=== PATIENT | male | born 1965 | race Caucasian/White ===

== ENCOUNTER 2017-07-30 17:06 | Emergency (ER) | payer OTHER ==
--- NOTE | 2017-07-30 18:54 | EDPHYS ---
Physician Documentation [facility] Name: Andrew Silva Age: 51 yrs Sex: Male : 1965 Arrival Date: 07/30/2017 Time: 17:08 Bed 5 Private MD: ED Physician Sujit Booker HPI: 07/30 19:23 This 51 yrs old Male presents to ER via Ambulatory with complaints of Chest snw Congestion. 19:23 Onset: The symptoms/episode began/occurred suddenly, 2 week(s) ago, and became worse snw and became persistent. Associated signs and symptoms: Pertinent positives: cough. Modifying factors: The patient symptoms are alleviated by inhaler treatment, taking Bactrim he had at home. The patient has experienced similar episodes in the past. The patient has been recently seen by a physician: with similar presenting [facility]. Historical: - Allergies: 17:21 Codeine; aj - Home Meds: 17:21 bupropion HCl 75 mg Oral tab 1 tab daily. for Major Depressive Disorder [Active]; aj diclofenac sodium 50 mg Oral TbEC 1 tab 2 times per day [Active]; gabapentin 300 mg Oral cap 1 cap four times a day for pain or anxiety. [Active]; hydrochlorothiazide 25 mg Oral tab 1 tab once daily [Active]; lisinopril 20 mg Oral tab 1 tab once daily [Active]; trazodone 50 mg Oral tab 1 tab bedtime. [Active]; - PMHx: 17:21 Depression; Hypertension; aj - PSHx: 17:21 None; aj - Immunization history:: Adult Immunizations up to date. - Social history:: Smoking status: Patient uses tobacco products, chewing tobacco. ROS: 19:21 Constitutional: Negative for fever, chills, and weight loss, Eyes: Negative for injury, snw pain, redness, and discharge, ENT: Negative for injury, pain, and discharge, Neck: Negative for injury, pain, and swelling, Cardiovascular: Negative for chest pain, palpitations, and edema, Back: Negative for injury and pain, : Negative for injury, bleeding, discharge, and swelling, MS/Extremity: Negative for injury and deformity, Skin: Negative for injury, rash, and discoloration, Neuro: Negative for headache, weakness, numbness, tingling, and seizure. 19:21 Abdomen/GI: Negative for abdominal pain, nausea, vomiting, diarrhea, and constipation. 19:21 Respiratory: Positive for cough, wheezing, expiratory. Exam: 19:21 Constitutional: This is a well developed, well nourished patient who is awake, alert, snw and in no acute distress. Head/Face: Normocephalic, atraumatic. Eyes: Pupils equal round and reactive to light, extra-ocular motions intact. Lids and lashes normal. Conjunctiva and sclera are non-icteric and not injected. Cornea within normal limits. Periorbital areas with no swelling, redness, or edema. ENT: Nares patent. No nasal discharge, no septal abnormalities noted. Tympanic membranes are normal and external auditory canals are clear. Oropharynx with no redness, swelling, or masses, exudates, or evidence of obstruction, uvula midline. Mucous membranes moist. Neck: Trachea midline, no thyromegaly or masses palpated, and no cervical lymphadenopathy. Supple, full range of motion without nuchal rigidity, or vertebral point tenderness. No Meningismus. Chest/axilla: Normal chest wall appearance and motion. Nontender with no deformity. No lesions are appreciated. Cardiovascular: Regular rate and rhythm with a normal S1 and S2. No gallops, murmurs, or rubs. Normal PMI, no JVD. No pulse deficits. Abdomen/GI: Soft, non-tender, with normal bowel sounds. No distension or tympany. No guarding or rebound. No evidence of tenderness throughout. Back: No spinal tenderness. No costovertebral tenderness. Full range of motion. Skin: Warm, dry with normal turgor. Normal color with no rashes, no lesions, and no evidence of cellulitis. MS/ Extremity: Pulses equal, no cyanosis. Neurovascular intact. Full, normal range of motion. Neuro: Awake and alert, GCS 15, oriented to person, place, time, and situation. Cranial nerves II-XII grossly intact. Motor strength 5/5 in all extremities. Sensory grossly intact. Cerebellar exam normal. Normal gait. 19:21 Respiratory: the patient does not display signs of respiratory distress, Respirations: normal, Breath sounds: bronchial sounds, wheezing: is not appreciated, is heard diffusely, cough. Vital Signs: 17:21 BP 169 / 114; Pulse 98; Resp 20; Temp 99.0; Pulse Ox 99% on R/A; Weight 107.5 kg; aj Height 5 ft. 10 in. (177.80 cm); Pain 0/10; 19:23 BP 156 / 108; Pulse 91; Resp 20; Pulse Ox 99% on R/A; tl2 17:21 Body Mass Index 34.01 (107.50 kg, 177.80 cm) aj MDM: 18:14 Patient medically screened. snw 19:23 Data reviewed: vital signs, nurses notes. Data interpreted: Pulse oximetry: on room air snw is 99 %. Interpretation: normal. Counseling: I had a detailed discussion with the patient and/or guardian regarding: the historical points, exam findings, and any diagnostic results supporting the discharge/admit diagnosis, the presence of at least one elevated blood pressure reading (>120/80) during this emergency department visit, the need for outpatient follow up, to return to the emergency department if symptoms worsen or persist or if there are any questions or concerns that arise at home. Special discussion: I have referred the patient to see his PCP for further evaluation of high blood pressure. Based on the history and exam findings, there is no indication for further emergent testing or inpatient evaluation. I discussed with the patient/guardian the need to see the primary care provider for further evaluation of the symptoms. Administered Medications: 19:22 Drug: Decadron 8 mg Route: PO; tl2 19:25 Follow up: Response: No adverse reaction; Medication administered at discharge. tl2 19:23 Not Given (Patient Refused): cloNIDine 0.1 mg PO once tl2 19:23 Drug: Augmentin 875 mg Route: PO; tl2 19:25 Follow up: Response: No adverse reaction; Medication administered at discharge. tl2 Disposition: 07/31 15:35 Co-signature as Attending Physician, Sujit Booker MD I agree with the assessment and wa plan of care. Disposition: 07/30/17 19:02 Discharged to Home. Impression: Cough variant asthma, Bronchitis, not specified as acute or chronic. - Condition is Stable. - Discharge Instructions: Acute Bronchitis, Fever, Adult, Hypertension, How to Use an Inhaler, Cool Mist Vaporizers, Cough, Adult. - Prescriptions for Augmentin 875- 125 mg Oral Tablet - take 1 tablet by ORAL route every 12 hours for 10 days; 20 tablet. Prednisone 20 mg Oral Tablet - take 2 tablet by ORAL route once daily for 5 days; 10 tablet. - Medication Reconciliation Form, Thank You Letter, Antibiotic Education, Prescription Opioid Use form. - Follow up: Private Physician; When: 1 - 2 days; Reason: Recheck today's complaints, Continuance of care, Re-evaluation by your physician. Follow up: Emergency Department; When: As needed; Reason: Worsening of condition. - Notes: Please stop Bactrim Signatures: Jael Natarajan RN RN Keiko Huber, VIDEO CONFERENCE SPECIALIST-C VIDEO CONFERENCE SPECIALIST-Csnw Ene Stanford RN RN tl2 Sujit Booker MD MD wa
--- NOTE | 2017-07-30 18:54 | ER ---
Nurse's Notes [facility] Name: Andrew Silva Age: 51 yrs Sex: Male : 1965 Arrival Date: 07/30/2017 Time: 17:08 Bed 5 Private MD: Diagnosis: Cough variant asthma;Bronchitis, not specified as acute or chronic Presentation: 07/30 17:19 Presenting complaint: Patient states: Cough with nasal congestion for 10 days. Reports aj painful productive cough. Transition of care: patient was not received from another setting of care. Onset of symptoms was July 20, 2017. Care prior to arrival: None. 17:19 Method Of Arrival: Ambulatory 17:19 Acuity: MANN 3 aj Triage Assessment: 17:21 General: Appears in no apparent distress. comfortable, Behavior is calm, cooperative, aj appropriate for age. Pain: Denies pain. EENT: Reports nasal congestion nasal discharge. Neuro: Level of Consciousness is awake, alert, obeys commands, Oriented to person, place, time, situation. Respiratory: Reports cough that is pain with cough Airway is patent Respiratory effort is even, unlabored, Respiratory pattern is regular, symmetrical. Derm: Skin is intact, is healthy with good turgor, Skin is pink, warm \T\ dry. normal. Historical: - Allergies: 17:21 Codeine; aj - Home Meds: 17:21 bupropion HCl 75 mg Oral tab 1 tab daily. for Major Depressive Disorder [Active]; aj diclofenac sodium 50 mg Oral TbEC 1 tab 2 times per day [Active]; gabapentin 300 mg Oral cap 1 cap four times a day for pain or anxiety. [Active]; hydrochlorothiazide 25 mg Oral tab 1 tab once daily [Active]; lisinopril 20 mg Oral tab 1 tab once daily [Active]; trazodone 50 mg Oral tab 1 tab bedtime. [Active]; - PMHx: 17:21 Depression; Hypertension; aj - PSHx: 17:21 None; aj - Immunization history:: Adult Immunizations up to date. - Social history:: Smoking status: Patient uses tobacco products, chewing tobacco. Screenin:10 Abuse screen: Denies threats or abuse. Denies injuries from another. Nutritional sg screening: No deficits noted. Tuberculosis screening: No symptoms or risk factors identified. Never had TB. Fall Risk None identified. Assessment: 18:10 General: Appears in no apparent distress. comfortable, well groomed, well developed, sg well nourished, Behavior is calm, cooperative, appropriate for age. Pain: Denies pain. Neuro: No deficits noted. Cardiovascular: Heart tones S1 S2 present Capillary refill is brisk in bilateral fingers Patient's skin is warm and dry. Chest pain is denied. Respiratory: Reports cough that is non-productive, pain with cough Airway is patent Respiratory effort is even, unlabored, Respiratory pattern is regular, symmetrical, Breath sounds are coarse. GI: No signs and/or symptoms were reported involving the gastrointestinal system. : No signs and/or symptoms were reported regarding the genitourinary system. EENT: No signs and/or symptoms were reported regarding the EENT system. Derm: No signs and/or symptoms reported regarding the dermatologic system. Skin is pink, warm \T\ dry. Musculoskeletal: No deficits noted. 19:23 Reassessment: Patient appears in no apparent distress at this time. Patient and/or tl2 family updated on plan of care and expected duration. Pain level reassessed. Patient is alert, oriented x 3, equal unlabored respirations, skin warm/dry/pink. Pt verbalized understanding of discharge instructions, need for follow up and prescription usage. Pt refused clonidine and stated his BP is high because he is upset. Verbalized understanding of risk of refusing medication. Vital Signs: 17:21 BP 169 / 114; Pulse 98; Resp 20; Temp 99.0; Pulse Ox 99% on R/A; Weight 107.5 kg; aj Height 5 ft. 10 in. (177.80 cm); Pain 0/10; 19:23 BP 156 / 108; Pulse 91; Resp 20; Pulse Ox 99% on R/A; tl2 17:21 Body Mass Index 34.01 (107.50 kg, 177.80 cm) aj ED Course: 17:08 Patient arrived in ED. as 17:20 Triage completed. aj 17:21 Arm band placed on left wrist. Patient placed in waiting room, Patient notified of wait aj time. 17:35 Brandyn Paz, RADHA is Primary Nurse. sg 17:37 Keiko Macias FNP-C is PHCP. snw 17:37 Sujit Booker MD is Attending Physician. snw 18:10 No provider procedures requiring assistance completed. Patient maintains SpO2 sg saturation greater than 95% on room air. 19:23 Patient has correct armband on for positive identification. tl2 19:23 Patient did not have IV access during this emergency room visit. tl2 Administered Medications: 19:22 Drug: Decadron 8 mg Route: PO; tl2 19:25 Follow up: Response: No adverse reaction; Medication administered at discharge. tl2 19:23 Not Given (Patient Refused): cloNIDine 0.1 mg PO once tl2 19:23 Drug: Augmentin 875 mg Route: PO; tl2 19:25 Follow up: Response: No adverse reaction; Medication administered at discharge. tl2 Outcome: 19:02 Discharge ordered by MD. snw 19:23 Discharged to home ambulatory, with family. tl2 19:23 Condition: stable 19:23 Discharge instructions given to patient, Instructed on discharge instructions, follow up and referral plans. medication usage, Demonstrated understanding of instructions, follow-up care, medications, Prescriptions given X 2. 19:26 Patient left the ED. tl2 Signatures: Brandyn Paz RN RN sg Myers, Amanda, RN RN aj Therrien, Shelly, CATEGORY ANALYST-C CATEGORY ANALYST-Csnw Justina Andres Taylor, RN RN tl2 Corrections: (The following items were deleted from the chart) 19:10 18:10 Respiratory: Airway is patent Respiratory effort is even, unlabored, Respiratory sg pattern is regular, symmetrical, Breath sounds are clear sg 19:25 19:23 Reassessment: Patient appears in no apparent distress at this time. Patient tl2 and/or family updated on plan of care and expected duration. Pain level reassessed. Patient is alert, oriented x 3, equal unlabored respirations, skin warm/dry/pink. Pt verbalized understanding of discharge instructions, need for follow up and prescription usage tl2
[2017-07-30] MEDS ORDERED: DEXAMETHASONE 4 MG TAB ONE (19:12)
[2017-07-30] MEDS ORDERED: cloNIDine HCl 0.1 MG TAB ONE (19:12)
[2017-07-30] MEDS ORDERED: AMOX/K CLAV 875 MG TAB ONE (19:12)
[2017-07-30 19:32] VITALS: TEMP 99; O2SAT 99
[2017-07-30 19:33] VITALS: BP 156/108
== END 2017-07-30 19:26 | disposition home or self-care (01) ==
LOC: ER 17:06
DX: J45.991 Cough variant asthma (principal); I10 Essential (primary) hypertension; F32.9 Major depressive disorder, single episode, unspecified; Z72.0 Tobacco use; Z88.5 Allergy status to narcotic agent
CPT/HCPCS: 99284

== ENCOUNTER 2019-04-05 21:12 | Emergency (ER) | payer OTHER ==
[2019-04-05] MEDS ORDERED: KETOROLAC 30 MG/ML INJ ONE (22:07)
--- NOTE | 2019-04-05 22:25 | EDPHYS ---
Physician Documentation [facility] Name: Andrew Silva Age: 53 yrs Sex: Male : 1965 Arrival Date: 04/05/2019 Time: 21:17 Bed 16 Private MD: ED Physician Timothy Craig HPI: 04/06 06:16 This 53 yrs old Male presents to ER via Ambulatory with complaints of Flu tw4 Symptoms. 06:16 The patient or guardian reports flu symptoms, arthralgias, low-grade fever, myalgias. tw4 Onset: The symptoms/episode began/occurred today. Severity of symptoms: At their worst the symptoms were moderate, in the emergency department the symptoms are unchanged. Modifying factors: The symptoms are alleviated by nothing, the symptoms are aggravated by nothing. The patient has not experienced similar symptoms in the past. Historical: - Allergies: 04/05 21:48 Codeine; tl1 - Home Meds: 21:48 bupropion HCl 300 mg Oral Tb24 once daily for Major Depressive Disorder [Active]; tl1 fluticasone furoate nasal twice daily [Active]; gabapentin 300 mg Oral cap 1 cap 3 times per day for pain or anxiety. [Active]; hydrochlorothiazide 25 mg Oral tab 1 tab once daily [Active]; hydroxyzine pamoate 25 mg Oral cap 1 cap at bedtime [Active]; ketotifen fumarate 0.025 % (0.035 %) ophthalmic drop 1 drop 2 times per day [Active]; lisinopril 20 mg Oral tab 1 tab once daily [Active]; omeprazole 20 mg Oral cpDR 1 cap once daily [Active]; prazosin 1 mg Oral cap 1 cap at bedtime [Active]; - PMHx: 21:48 chronic back pain; Depression; Hernia; Hypertension; multiple back surgeries; tl1 - PSHx: 21:48 back surgery; Tonsillectomy; tl1 - Immunization history:: Adult Immunizations not up to date. - Social history:: Smoking status: Patient uses tobacco products, chewing tobacco. - Ebola Screening: : Patient negative for fever greater than or equal to 101.5 degrees Fahrenheit, and additional compatible Ebola Virus Disease symptoms Patient denies exposure to infectious person Patient denies travel to an Ebola-affected area in the 21 days before illness onset. ROS: 04/06 06:16 Eyes: Negative for injury, pain, redness, and discharge, Cardiovascular: Negative for tw4 chest pain, palpitations, and edema, Respiratory: Negative for shortness of breath, cough, wheezing, and pleuritic chest pain, Abdomen/GI: Negative for abdominal pain, nausea, vomiting, diarrhea, and constipation. Back: Negative for injury and pain, MS/Extremity: Negative for injury and deformity, Skin: Negative for injury, rash, and discoloration, Neuro: Negative for headache, weakness, numbness, tingling, and seizure. Constitutional: Negative for chills, malaise. Exam: 06:16 Constitutional: This is a well developed, well nourished patient who is awake, alert, tw4 and in no acute distress. Head/Face: Normocephalic, atraumatic. Chest/axilla: Normal chest wall appearance and motion. Nontender with no deformity. No lesions are appreciated. Cardiovascular: Regular rate and rhythm with a normal S1 and S2. No gallops, murmurs, or rubs. Normal PMI, no JVD. No pulse deficits. Respiratory: Lungs have equal breath sounds bilaterally, clear to auscultation and percussion. No rales, rhonchi or wheezes noted. No increased work of breathing, no retractions or nasal flaring. Abdomen/GI: Soft, non-tender, with normal bowel sounds. No distension or tympany. No guarding or rebound. No evidence of tenderness throughout. Skin: Warm, dry with normal turgor. Normal color with no rashes, no lesions, and no evidence of cellulitis. MS/ Extremity: Pulses equal, no cyanosis. Neurovascular intact. Full, normal range of motion. Neuro: Awake and alert, GCS 15, oriented to person, place, time, and situation. Cranial nerves II-XII grossly intact. Motor strength 5/5 in all extremities. Sensory grossly intact. Cerebellar exam normal. Normal gait. Vital Signs: 04/05 21:51 BP 158 / 87; Pulse 119; Resp 22; Temp 98.3; Pulse Ox 97% on R/A; Weight 113.4 kg; tl1 Height 5 ft. 10 in. (177.80 cm); Pain 7/10; 22:47 BP 151 / 86; Pulse 111; Resp 20; Pulse Ox 98% on R/A; rv 21:51 Body Mass Index 35.87 (113.40 kg, 177.80 cm) tl1 MDM: 21:46 Patient medically screened. tw4 04/06 06:16 Differential Diagnosis: Obstructed Airway Bronchitis Influenza Upper Respiratory tw4 Infection. Data reviewed: vital signs, nurses notes. Data reviewed: lab test result(s), Flu: negative. Counseling: I had a detailed discussion with the patient and/or guardian regarding: the historical points, exam findings, and any diagnostic results supporting the discharge/admit diagnosis, lab results. 04/05 21:19 Order name: Flu tw4 Administered Medications: 04/05 22:08 Drug: TORadol 60 mg Route: IM; Site: right deltoid; rv 22:46 Follow up: Response: Marked relief of symptoms; Pain is decreased rv Disposition: 04/05/19 22:25 Discharged to Home. Impression: Viral infection, unspecified. - Condition is Stable. - Discharge Instructions: Viral Respiratory Infection. - Prescriptions for Ibuprofen 800 mg Oral Tablet - take 1 tablet by ORAL route every 8 hours As needed take with food; 30 tablet. - Medication Reconciliation Form, Thank You Letter, Antibiotic Education, Prescription Opioid Use form. - Follow up: Private Physician; When: Upon discharge from the Emergency Department; Reason: Recheck today's complaints, Continuance of care. - Problem is new. - Symptoms have improved. Signatures: Dispatcher [employer] EDMS Arleth See RN RN tl1 Timothy Craig MD MD tw4 Felipe Turk RN RN rv Corrections: (The following items were deleted from the chart) 22:49 22:25 04/05/2019 22:25 Discharged to Home. Impression: Viral infection, unspecified. rv Condition is Stable. Forms are Medication Reconciliation Form, Thank You Letter, Antibiotic Education, Prescription Opioid Use. Follow up: Private Physician; When: Upon discharge from the Emergency Department; Reason: Recheck today's complaints, Continuance of care. Problem is new. Symptoms have improved. tw4
--- NOTE | 2019-04-05 22:25 | ER ---
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 Transition of care: patient was not received from another setting of care. Onset of symptoms was April 05, 2019. Risk Assessment: Do you want to hurt yourself or someone else? Patient reports no desire to harm self or others. Initial Sepsis Screen: Does the patient meet any 2 criteria? No. Patient's initial sepsis screen is negative. Does the patient have a suspected source of infection? No. Patient's initial sepsis screen is negative. Care prior to arrival: None. 21:44 Method Of Arrival: Ambulatory tl1 21:44 Acuity: MANN 3 tl1 Historical: - Allergies: 21:48 Codeine; tl1 - Home Meds: 21:48 bupropion HCl 300 mg Oral Tb24 once daily for Major Depressive Disorder [Active]; tl1 fluticasone furoate nasal twice daily [Active]; gabapentin 300 mg Oral cap 1 cap 3 times per day for pain or anxiety. [Active]; hydrochlorothiazide 25 mg Oral tab 1 tab once daily [Active]; hydroxyzine pamoate 25 mg Oral cap 1 cap at bedtime [Active]; ketotifen fumarate 0.025 % (0.035 %) ophthalmic drop 1 drop 2 times per day [Active]; lisinopril 20 mg Oral tab 1 tab once daily [Active]; omeprazole 20 mg Oral cpDR 1 cap once daily [Active]; prazosin 1 mg Oral cap 1 cap at bedtime [Active]; - PMHx: 21:48 chronic back pain; Depression; Hernia; Hypertension; multiple back surgeries; tl1 - PSHx: 21:48 back surgery; Tonsillectomy; tl1 - Immunization history:: Adult Immunizations not up to date. - Social history:: Smoking status: Patient uses tobacco products, chewing tobacco. - Ebola Screening: : Patient negative for fever greater than or equal to 101.5 degrees Fahrenheit, and additional compatible Ebola Virus Disease symptoms Patient denies exposure to infectious person Patient denies travel to an Ebola-affected area in the 21 days before illness onset. Screenin:00 Abuse screen: Denies threats or abuse. Denies injuries from another. rv 22:00 Nutritional screening: No deficits noted. Tuberculosis screening: No symptoms or risk rv factors identified. Fall Risk None identified. Assessment: 22:00 General: Appears in no apparent distress. comfortable, Behavior is calm, cooperative. rv 22:00 Pain: Complains of pain in generalized. Neuro: Level of Consciousness is awake, alert, rv obeys commands, Oriented to person, place, time, situation. Respiratory: Airway is patent. Derm: Skin is intact. Musculoskeletal: Reports pain in generalized. Vital Signs: 21:51 BP 158 / 87; Pulse 119; Resp 22; Temp 98.3; Pulse Ox 97% on R/A; Weight 113.4 kg; tl1 Height 5 ft. 10 in. (177.80 cm); Pain 7/10; 22:47 BP 151 / 86; Pulse 111; Resp 20; Pulse Ox 98% on R/A; rv 21:51 Body Mass Index 35.87 (113.40 kg, 177.80 cm) tl1 ED Course: 21:17 Patient arrived in ED. [id number] 21:19 Timothy Craig MD is Attending Physician. tw4 21:46 Triage completed. tl1 21:52 Arm band placed on right wrist. tl1 22:00 Patient has correct armband on for positive identification. Bed in low position. Call rv light in reach. Side rails up X 1. Pulse ox on. NIBP on. 22:08 Felipe Turk, RADHA is Primary Nurse. rv 22:48 No provider procedures requiring assistance completed. Patient did not have IV access rv during this emergency room visit. Administered Medications: 22:08 Drug: TORadol 60 mg Route: IM; Site: right deltoid; rv 22:46 Follow up: Response: Marked relief of symptoms; Pain is decreased rv Outcome: 22:25 Discharge ordered by . tw4 22:48 Discharged to home ambulatory, with family. rv 22:48 Condition: good 22:48 Discharge instructions given to patient, Instructed on discharge instructions, follow up and referral plans. medication usage, Demonstrated understanding of instructions, follow-up care, medications, Prescriptions given X 1. 22:49 Patient left the ED. rv Signatures: Arleth See RN RN tl1 Timothy Craig MD MD tw4 Felipe Turk RN RN rv Gris Treviño [id number]
[2019-04-05 23:51] VITALS: TEMP 98.3
[2019-04-05 23:52] VITALS: BP 151/86; O2SAT 98
== END 2019-04-05 22:49 | disposition home or self-care (01) ==
LOC: ER 21:12
DX: B34.9 Viral infection, unspecified (principal); I10 Essential (primary) hypertension; F32.9 Major depressive disorder, single episode, unspecified; F17.220 Nicotine dependence, chewing tobacco, uncomplicated; Z88.5 Allergy status to narcotic agent
CPT/HCPCS: 87804; 96372; 99283

== ENCOUNTER 2021-03-30 11:42 | Emergency (ER) | payer OTHER ==
--- OUTSIDE RECORDS SUMMARY | 2021-03-30 11:45 | XMS REPORT | Continuity of Care Document ---
:1965 Author Organization [facility] t Address [address] [place] [address] Care Team Providers Name Role Phone Radiology Attending Clinician Unavailable RADIOLOGY Attending Clinician Unavailable Doctor Unassigned, Name Attending Clinician Unavailable Payers Payer Name Policy Type Policy Number Effective Date Expiration Date S elaine [facility] [id number] 2021 (MEDICARE 00:00:00 REPLACEMENT HMO) Problems This patient has no known problems. Allergies, Adverse Reactions, Alerts Allergy Allergy Status Severity Reaction(s) Onset Inactive Treating Comm ents Source Name Type Date Date Clinician NO KNOWN Drug Active Univers ALLERGIE Class ity of [facility] Social History Social Habit Start Date Stop Date Quantity Comments Source Exposure to Not sure [facility] SARS-CoV-2 (event) Medica l Branch Sex Assigned At [birth year] [facility] 00:00:00 00:00:00 [facility] Branch Smoking Status Start Date Stop Date Source Unknown if ever smoked [facility] Medications This patient has no known medications. Procedures Procedure Date / Time Performed Performing Clinician Carolina brewer MR KNEE RIGHT WO 2020-11-07 15:53:42 Luciana Joseph [facility] Branch ASSIGNMENT OF BENEFITS 2020-11-07 14:35:47 Doctor Unassigned, No [facility] Branch Encounters Start End Encounter Admission Attending Care Care Encounter Source Date/Time Date/Time Type Type Clinicians Facility Department ID 2021-02-14 2021-02-14 Outpatient DMG DMG [id number] [facility] 08:00:00 08:00:00 1028 Medica l Group 2020-11-07 2020-11-07 Hospital Radiology [facility] [id number] Univers 09:36:37 23:59:00 Encounter [place] [id number] ity of [place] [id number] [facility] [id number] [facility] oseas 804 Branch 2020-11-07 2020-11-07 Outpatient R RADIOLOGY [facility] [id number] Univers 00:00:00 00:00:00 ity of [facility] 2020-11-07 2020-11-07 Orders Doctor EFRAIN [id number] Univers 00:00:00 00:00:00 Only Unassigned, ARELIS [id number] ity of [place] [facility] [id number] [facility] [id number] [facility] 009 Branch Results Test Description Test Time Test Results Result Source Comments Comments MR KNEE RIGHT WO 2020-10-19 3.1 cm ganglion cyst University of CONTRAST 1 situated between the [facility] 18:46:22 medial collateral Branch ligament andoverlying sartorius muscle. A 6 mm lobulated cystic structure along the anterior intercondylar notchmay represent a ganglion or parameniscal cyst, raising the possibility ofan occult meniscal tear. Osteoarthrosis with grade 2 patellofemoral chondromalacia. Mild patellar tendinopathy and deep infrapatellar bursitis. Preliminary Report Dictated by Resident: Heather Botello MD., have reviewed this study and agree with the abovereport.MR KNEE RIGHT WO CONTRAST HISTORY: 55 years-old; male; Indication for study: unspecified right kneepain(faxed order). COMPARISON: None TECHNIQUE AND FINDINGS: 1.5 T multiplanar multiweighted MR imaging of the right knee was performed. BONE AND JOINT: Mild lateral patellar tilt is seen. Tricompartmental osteophytosis ispresent with hypertrophy of the tibial spines. No focal marrow signalintensity abnormality is seen. No joint effusion is present. Grade 2chondral defects are present along the patellar apex. MENISCI: No discrete medial or lateral meniscus tear is seen. LIGAMENTS AND TENDONS: The ACL, MCL, PCL, patellar retinacula and lateral collateral ligamentouscomplex are intact.The quadriceps tendon and popliteus tendon are normal in morphology andsignal intensity. The proximal and distal aspects of the patellar tendon are mildly thickenedand intermediate in signal intensity. SOFT TISSUES: A 3.1 x 1.7 x 2.4 cm well-defined multiseptated cystic structure is seen atthe posteromedial aspect of the knee at the level of medial femoralcondyle, deep to the sartorius muscle and abutting the posterior aspect ofthe medial collateral ligament. It demonstrates homogenous high T2/low [id number]. A subcentimeter well-circumscribed round cystic structure is seen along thearticular surface of the central portion of the lateral femoral condyle.Additional few subcentimeter cystic structure are seen in the posteriorknee joint. Nonspecific minimal T2 signal/edema seen in the prepatellar andinfrapatellar subcutaneous tissue. Trace fluid is seen in the deepinfrapatellar space. No soft tissue mass is identified. An ?additional 6 mm lobulated cystic structure is present along theanterior intercondylar notch, possibly representing a ganglion or parameniscal cyst. Fluid accumulates in the deep infrapatellar bursa. [facility], Radiant Results Inft User - 11/07/2020 2:01 PM CDT MR KNEE RIGHT WO CONTRASTHISTORY: 55 years-old; male; Indication for study: unspecified right kneepain(faxed order).COMPARISON: NoneTECHNIQUE AND FINDINGS:1.5 T multiplanar multiweighted MR imaging of the right knee was performed.BONE AND JOINT:Mild lateral patellar tilt is seen. Tricompartmental osteophytosis ispresent with hypertrophy of the tibial spines. No focal marrow signalintensity abnormality is seen. No joint effusion is present. Grade 2chondral defects are present along the patellar apex.MENISCI:No discrete medial or lateral meniscus tear is seen.LIGAMENTS AND TENDONS:The ACL, MCL, PCL, patellar retinacula and lateral collateral ligamentouscomplex are intact.The quadriceps tendon and popliteus tendon are normal in morphology andsignal intensity.The proximal and distal aspects of the patellar tendon are mildly thickenedand intermediate in signal intensity.SOFT TISSUES:A 3.1 x 1.7 x 2.4 cm well-defined multiseptated cystic structure is seen atthe posteromedial aspect of the knee at the level of medial femoralcondyle, deep to the sartorius muscle and abutting the posterior aspect ofthe medial collateral ligament. It demonstrates homogenous high T2/low [id number].A subcentimeter well-circumscribed round cystic structure is seen along thearticular surface of the central portion of the lateral femoral condyle.Additional few subcentimeter cystic structure are seen in the posteriorknee joint. Nonspecific minimal T2 signal/edema seen in the prepatellar andinfrapatellar subcutaneous tissue. Trace fluid is seen in the deepinfrapatellar space. No soft tissue mass is identified.An additional 6 mm lobulated cystic structure is present along theanterior intercondylar notch, possibly representing a ganglion or parameniscal cyst.Fluid accumulates in the deep infrapatellar bursa.IMPRESSION3.1 cm ganglion cyst situated between the medial collateral ligament andoverlying sartorius muscle.A 6 mm lobulated cystic structure along the anterior intercondylar notchmay represent a ganglion or parameniscal cyst, raising the possibility ofan occult meniscal tear.Osteoarthrosis with grade 2 patellofemoral chondromalacia.Mild patellar tendinopathy and deep infrapatellar bursitis.Preliminary Report Dictated by Resident: Heather Monzon MD., have reviewed this study and agree with the abovereport.
[2021-03-30] MEDS ORDERED: HYDROCODONE/APAP 10/325 TAB ONE (13:19)
--- NOTE | 2021-03-30 14:29 | EDPHYS ---
Physician Documentation [facility] Name: Andrew Silva Age: 55 yrs Sex: Male : 1965 Arrival Date: 03/30/2021 Time: 11:44 Bed 8 Private MD: ED Physician Robin Gil HPI: 03/30 13:11 This 55 yrs old Male presents to ER via Wheelchair with complaints of Ankle Injury. pm1 13:11 The patient presents with pain, that is acute. The complaints affect the right ankle. pm1 Onset: The symptoms/episode began/occurred just prior to arrival, today. Context: The problem was sustained outdoors, resulted from a mis-step by the patient, rolled his ankle while stepping off his vehicle, The mechanism of injury involved inversion of the affected ankle. The patient can partially bear weight on the affected extremity. the patient is able to ambulate, with moderate difficulty. Associated signs and symptoms: Pertinent positives: swelling, Pertinent negatives: numbness, tingling. Modifying factors: The symptoms are alleviated by elevation of extremity, the symptoms are aggravated by weight bearing, movement. Severity of symptoms: in the emergency department the symptoms are unchanged. The patient has not experienced similar symptoms in the past. The patient has not recently seen a physician. Historical: - Allergies: 11:53 Codeine; vg1 - Home Meds: 11:53 gabapentin 300 mg Oral cap 1 cap 3 times per day for pain or anxiety. [Active]; vg1 hydrochlorothiazide 25 mg Oral tab 1 tab once daily [Active]; metformin Oral [Active]; lisinopril 20 mg Oral tab 1 tab once daily [Active]; omeprazole 20 mg Oral cpDR 1 cap once daily [Active]; hydroxyzine pamoate 25 mg Oral cap 1 cap at bedtime [Active]; bupropion HCl 300 mg Oral Tb24 once daily for Major Depressive Disorder [Active]; - PMHx: 11:53 chronic back pain; Depression; Hernia; Hypertension; multiple back surgeries; vg1 - Immunization history:: Client reports receiving the 2nd dose of the Covid vaccine. - Social history:: Smoking status: Patient denies any tobacco usage or history of. ROS: 13:11 Constitutional: Negative for fever, chills, and weight loss, Cardiovascular: Negative pm1 for chest pain, palpitations, and edema, Respiratory: Negative for shortness of breath, cough, wheezing, and pleuritic chest pain. 13:11 Skin: Negative for injury, rash, and discoloration, Neuro: Negative for headache, weakness, numbness, tingling, and seizure. 13:11 MS/extremity: Positive for pain, swelling, tenderness, of the right lateral malleolus and lateral aspect of right foot, Negative for decreased range of motion, deformity. 13:11 All other systems are negative. Exam: 13:11 Constitutional: This is a well developed, well nourished patient who is awake, alert, pm1 and in no acute distress. Head/Face: Normocephalic, atraumatic. 13:11 Skin: Warm, dry with normal turgor. Normal color with no rashes, no lesions, and no evidence of cellulitis. 13:11 Cardiovascular: Exam negative for acute changes, Rate: normal, Rhythm: regular, Pulses: no pulse deficits are appreciated, Edema: is not appreciated. 13:11 Respiratory: Exam negative for acute changes, respiratory distress, shortness of breath. 13:11 Musculoskeletal/extremity: Exam is negative for acute changes, Extremities: grossly normal except: noted in the right lateral malleolus: swelling, tenderness, There is no evidence of decreased ROM, deformity, noted in the proximal medial dorsal aspect of right foot: tenderness, no evidence of deformity, ROM: intact in all extremities, Circulation is intact in all extremities. 13:11 Neuro: Exam negative for acute changes, Orientation: is normal, Mentation: is normal, Motor: is normal, moves all fours. Vital Signs: 11:50 BP 134 / 88; Pulse 90; Resp 18; Temp 99.0; Pulse Ox 98% ; Weight 111.13 kg; Height 5 vg1 ft. 10 in. (177.80 cm); Pain 7/10; 12:12 BP 139 / 84; Pulse 92; Resp 20; Pulse Ox 96% ; Pain 5/10; al4 12:30 BP 124 / 89; Pulse 91; Resp 18; Pulse Ox 95% ; al4 13:00 BP 116 / 59; Pulse 83; Resp 18; Pulse Ox 97% ; Pain 8/10; al4 13:30 BP 130 / 86; Pulse 85; Resp 18; Pulse Ox 96% ; al4 14:24 BP 125 / 87; Pulse 89; Resp 18; Pulse Ox 97% ; al4 11:50 Body Mass Index 35.15 (111.13 kg, 177.80 cm) vg1 MDM: 12:20 Patient medically screened. pm1 13:51 Data reviewed: vital signs. Data interpreted: Pulse oximetry: on room air is 96 %. pm1 Interpretation: normal. 14:26 Counseling: I had a detailed discussion with the patient and/or guardian regarding: the pm1 historical points, exam findings, and any diagnostic results supporting the discharge/admit diagnosis, radiology results, the need for outpatient follow up, to return to the emergency department if symptoms worsen or persist or if there are any questions or concerns that arise at home. 14:34 ED course: Patient offered prescription for pain medications. Patient reports his pm1 gabapentin is sufficient to numb the pain. 03/30 12:11 Order name: Ankle Right 3 View XRAY; Complete Time: 14:40 pm1 03/30 12:11 Order name: Foot Right 3 View XRAY; Complete Time: 14:40 pm1 03/30 12:11 Order name: Ice pack; Complete Time: 12:21 pm1 03/30 13:11 Order name: Splint - Ankle: Orthoglass: Stirrup; Complete Time: 13:36 pm1 03/30 13:11 Order name: Crutches; Complete Time: 13:36 pm1 Administered Medications: 13:27 Drug: [place] (HYDROcodone-acetaminophen) 10 mg-325 mg 1 tabs Route: PO; al4 14:27 Follow up: Response: No adverse reaction; RASS: Alert and Calm (0) al4 Disposition: 03/31 07:09 Co-signature as Attending Physician, Robin Gil MD. ma2 Disposition Summary: 03/30/21 14:28 Discharge Ordered Location: Home pm1 Problem: new pm1 Symptoms: have improved pm1 Condition: Stable pm1 Diagnosis - Right lateral malleous avusion fracture pm1 - Sprain of unspecified ligament of right ankle pm1 Followup: pm1 - With: Emergency Department - When: As needed - Reason: Worsening of condition Followup: pm1 - With: Private Physician - When: 2 - 3 days - Reason: Recheck today's complaints, Continuance of care, Re-evaluation by your physician Followup: pm1 - With: Brandyn Anthony MD - When: 2 - 3 days - Reason: Recheck today's complaints, Continuance of care, Re-evaluation by your physician Discharge Instructions: - Discharge Summary Sheet pm1 - Ankle Fracture pm1 - Cast or Splint Care, Adult pm1 - Crutch Use, Adult pm1 Forms: - Medication Reconciliation Form pm1 - Thank You Letter pm1 - Antibiotic Education pm1 - Prescription Opioid Use pm1 Signatures: Dispatcher [employer] EDMS All Cantu, [place] IT ACCOUNT MANAGER pm1 Robin Gil MD MD ma2 Mariah Acosta RN RN vg1 Evin Kate
--- NOTE | 2021-03-30 14:29 | ER ---
Nurse's Notes [facility] Name: Andrew Silva Age: 55 yrs Sex: Male : 1965 Arrival Date: 03/30/2021 Time: 11:44 Bed 8 Private MD: Diagnosis: Right lateral malleous avusion fracture;Sprain of unspecified ligament of right ankle Presentation: 03/30 11:50 Chief complaint: Patient states: pt was stepping off four-antonio and lost footing; vg1 states 'my foot slipped right under me and I heard four pops'. Pt Right ankle appears to be swollen. Coronavirus screen: Vaccine status: Patient reports receiving the 2nd dose of the covid vaccine. At this time, the client does not indicate any symptoms associated with coronavirus-19. Ebola Screen: Patient negative for fever greater than or equal to 101.5 degrees Fahrenheit, and additional compatible Ebola Virus Disease symptoms. Initial Sepsis Screen: Does the patient meet any 2 criteria? No. Patient's initial sepsis screen is negative. Does the patient have a suspected source of infection? No. Patient's initial sepsis screen is negative. Risk Assessment: Do you want to hurt yourself or someone else? Patient reports no desire to harm self or others. Onset of symptoms was March 30, 2021. 11:50 Method Of Arrival: Wheelchair vg1 11:50 Acuity: MANN 4 vg1 Triage Assessment: 11:53 General: Appears in no apparent distress. uncomfortable, Behavior is calm, cooperative. vg1 Pain: Complains of pain in right lateral malleolus Pain currently is 7 out of 10 on a pain scale. Musculoskeletal: Swelling present in right lateral malleolus. Historical: - Allergies: 11:53 Codeine; vg1 - Home Meds: 11:53 gabapentin 300 mg Oral cap 1 cap 3 times per day for pain or anxiety. [Active]; vg1 hydrochlorothiazide 25 mg Oral tab 1 tab once daily [Active]; metformin Oral [Active]; lisinopril 20 mg Oral tab 1 tab once daily [Active]; omeprazole 20 mg Oral cpDR 1 cap once daily [Active]; hydroxyzine pamoate 25 mg Oral cap 1 cap at bedtime [Active]; bupropion HCl 300 mg Oral Tb24 once daily for Major Depressive Disorder [Active]; - PMHx: 11:53 chronic back pain; Depression; Hernia; Hypertension; multiple back surgeries; vg1 - Immunization history:: Client reports receiving the 2nd dose of the Covid vaccine. - Social history:: Smoking status: Patient denies any tobacco usage or history of. Screenin:21 Abuse screen: Denies threats or abuse. Nutritional screening: No deficits noted. al4 Tuberculosis screening: No symptoms or risk factors identified. Fall Risk No fall in past 12 months (0 pts). No IV (0 pts). Ambulatory Aid- None/Bed Rest/Nurse Assist (0 pts). Gait- Normal/Bed Rest/Wheelchair (0 pts) Mental Status- Oriented to own ability (0 pts). Total Mcdermott Fall Scale indicates No Risk (0-24 pts). Assessment: 12:09 General: Appears in no apparent distress. uncomfortable, Behavior is calm, cooperative, al4 appropriate for age, Reports pain in his ankle. Pain: Complains of pain in right ankle Pain does not radiate. Neuro: Level of Consciousness is awake, alert, obeys commands, Oriented to person, place, time, situation, Appropriate for age. Cardiovascular: Heart tones present Capillary refill < 3 seconds Patient's skin is warm and dry. Respiratory: Airway is patent Respiratory effort is even, unlabored, Respiratory pattern is regular, symmetrical, Breath sounds are clear bilaterally. GI: No signs and/or symptoms were reported involving the gastrointestinal system. : No signs and/or symptoms were reported regarding the genitourinary system. EENT: No signs and/or symptoms were reported regarding the EENT system. Derm: No signs and/or symptoms reported regarding the dermatologic system. Musculoskeletal: Swelling present in right ankle Tenderness present in right ankle and lateral aspect of right foot Reports pain in right ankle. 13:00 Reassessment: No changes from previously documented assessment. Patient and/or family al4 updated on plan of care and expected duration. Pain level reassessed. Patient is alert, oriented x 3, equal unlabored respirations, skin warm/dry/pink. 14:42 Reassessment: No changes from previously documented assessment. Patient and/or family al4 updated on plan of care and expected duration. Pain level reassessed. Patient is alert, oriented x 3, equal unlabored respirations, skin warm/dry/pink. Vital Signs: 11:50 BP 134 / 88; Pulse 90; Resp 18; Temp 99.0; Pulse Ox 98% ; Weight 111.13 kg; Height 5 vg1 ft. 10 in. (177.80 cm); Pain 7/10; 12:12 BP 139 / 84; Pulse 92; Resp 20; Pulse Ox 96% ; Pain 5/10; al4 12:30 BP 124 / 89; Pulse 91; Resp 18; Pulse Ox 95% ; al4 13:00 BP 116 / 59; Pulse 83; Resp 18; Pulse Ox 97% ; Pain 8/10; al4 13:30 BP 130 / 86; Pulse 85; Resp 18; Pulse Ox 96% ; al4 14:24 BP 125 / 87; Pulse 89; Resp 18; Pulse Ox 97% ; al4 11:50 Body Mass Index 35.15 (111.13 kg, 177.80 cm) vg1 ED Course: 11:44 Patient arrived in ED. am2 11:52 Triage completed. vg1 11:53 Arm band placed on. vg1 11:59 All Cantu NP is PHCP. pm1 11:59 Robin Gil MD is Attending Physician. pm1 12:21 Patient has correct armband on for positive identification. Bed in low position. Call al4 light in reach. Side rails up X 1. Pulse ox on. NIBP on. Door closed. Noise minimized. 12:57 Ankle Right 3 View XRAY In Process Unspecified. EDMS 12:58 Foot Right 3 View XRAY In Process Unspecified. EDMS 13:12 Evin Kate is Primary Nurse. al4 14:29 Brandyn Anthony MD is Referral Physician. pm1 14:42 Orthoglass splint: stirrup splint applied on right leg. al4 14:42 No provider procedures requiring assistance completed. Patient did not have IV access al4 during this emergency room visit. Administered Medications: 13:27 Drug: [place] (HYDROcodone-acetaminophen) 10 mg-325 mg 1 tabs Route: PO; al4 14:27 Follow up: Response: No adverse reaction; RASS: Alert and Calm (0) al4 Outcome: 14:28 Discharge ordered by . pm1 14:42 Discharged to home ambulatory, with crutches, with family. al4 14:42 Condition: stable 14:42 Discharge instructions given to patient, family, Instructed on discharge instructions, follow up and referral plans. medication usage, Demonstrated understanding of instructions, follow-up care, medications. 14:43 Patient left the ED. al4 Signatures: Dispatcher [employer] EDMS All Cantu NP SHOEMAKER APPRENTICE pm1 Jael Hernandez am2 Mariah Acosta, RN RN vg1 Evin Kate al4
--- NOTE | 2021-03-30 14:38 | RAD REPORT ---
EXAM DESCRIPTION: RAD - Ankle Right 3 View - 03/30/2021 12:58 pm CLINICAL HISTORY: PAIN COMPARISON: No comparisons FINDINGS: No acute fracture. No malalignment. No significant focal degenerative changes. Soft tissue swelling along the lateral aspect of the right ankle. IMPRESSION: No acute osseous abnormality involving the right ankle.
--- NOTE | 2021-03-30 14:38 | RAD REPORT ---
EXAM DESCRIPTION: RAD - Foot Right 3 View - 03/30/2021 12:58 pm CLINICAL HISTORY: PAIN COMPARISON: No comparisons FINDINGS: No acute fracture. No malalignment. No significant focal degenerative changes. IMPRESSION: No acute osseous abnormality involving the right foot.
[2021-03-30 14:49] VITALS: TEMP 99
[2021-03-30 14:55] VITALS: BP 125/87; O2SAT 97
== END 2021-03-30 14:43 | disposition home or self-care (01) ==
LOC: ER 11:42
DX: S82.61XA Displaced fracture of lateral malleolus of right fibula, initial encounter for closed fracture (principal); S93.401A Sprain of unspecified ligament of right ankle, initial encounter; X50.1XXA Overexertion from prolonged static or awkward postures, initial encounter; Y92.9 Unspecified place or not applicable
CPT/HCPCS: 99284